=== PATIENT | female | born 1985 ===

== ENCOUNTER 2021-08-19 13:55 | Outpatient (CLI) | payer OTHER ==
[2021-08-19] MEDS ORDERED: SODIUM CHLORIDE IRRIG SOLUTION 1,000 ML BAG IR SCH (16:30)
[2021-08-19] MEDS ORDERED: LIDOCAINE (4%) 40 MG/ML TOPICAL SOLN 50 ML BOTTLE TP SCH (16:30)
== END 2021-08-19 13:56 | disposition home or self-care (01) ==
LOC: WOUND 13:55
PROVIDERS: ATTEND Surgery
DX: T81.89XA Other complications of procedures, not elsewhere classified, initial encounter (principal); Y92.238 Other place in hospital as the place of occurrence of the external cause; Y83.8 Other surgical procedures as the cause of abnormal reaction of the patient, or of later complication, without mention of misadventure at the time of the procedure

== ENCOUNTER 2021-08-26 08:42 | Outpatient (CLI) | payer OTHER ==
[2021-08-26] MEDS ORDERED: LIDOCAINE (4%) 40 MG/ML TOPICAL SOLN 50 ML BOTTLE TP SCH (09:00)
[2021-08-26] MEDS ORDERED: SODIUM CHLORIDE IRRIG SOLUTION 1,000 ML BAG IR SCH (09:30)
== END 2021-08-26 08:43 | disposition home or self-care (01) ==
LOC: WOUND 08:42
PROVIDERS: ATTEND Surgery
DX: T81.89XD Other complications of procedures, not elsewhere classified, subsequent encounter (principal); Y83.8 Other surgical procedures as the cause of abnormal reaction of the patient, or of later complication, without mention of misadventure at the time of the procedure

== ENCOUNTER 2021-09-09 12:28 | Outpatient (CLI) | payer OTHER ==
[2021-09-09] MEDS ORDERED: LIDOCAINE (4%) 40 MG/ML TOPICAL SOLN 50 ML BOTTLE TP ONE (13:07)
[2021-09-09] MEDS ORDERED: SODIUM CHLORIDE IRRIG SOLUTION 1,000 ML BAG IR ONE (14:00)
== END 2021-09-09 12:29 | disposition home or self-care (01) ==
LOC: WOUND 12:28
PROVIDERS: ATTEND Surgery
DX: T81.89XD Other complications of procedures, not elsewhere classified, subsequent encounter (principal); L97.822 Non-pressure chronic ulcer of other part of left lower leg with fat layer exposed; M79.A29 Nontraumatic compartment syndrome of unspecified lower extremity; Z79.899 Other long term (current) drug therapy; Y83.8 Other surgical procedures as the cause of abnormal reaction of the patient, or of later complication, without mention of misadventure at the time of the procedure

== ENCOUNTER 2021-09-16 10:49 | Outpatient (CLI) | payer OTHER ==
[2021-09-16] MEDS ORDERED: LIDOCAINE (4%) 40 MG/ML TOPICAL SOLN 50 ML BOTTLE TP ONE (11:37)
[2021-09-16] MEDS ORDERED: SODIUM CHLORIDE IRRIG SOLUTION 1,000 ML BAG IR ONE (11:38)
== END 2021-09-16 10:50 | disposition home or self-care (01) ==
LOC: WOUND 10:49
PROVIDERS: ATTEND Surgery
DX: T81.89XD Other complications of procedures, not elsewhere classified, subsequent encounter (principal); L97.822 Non-pressure chronic ulcer of other part of left lower leg with fat layer exposed; M79.A22 Nontraumatic compartment syndrome of left lower extremity; Y83.8 Other surgical procedures as the cause of abnormal reaction of the patient, or of later complication, without mention of misadventure at the time of the procedure

== ENCOUNTER 2021-09-30 13:25 | Outpatient (CLI) | payer OTHER ==
[2021-09-30] MEDS ORDERED: LIDOCAINE (4%) 40 MG/ML TOPICAL SOLN 50 ML BOTTLE TP ONE (13:42)
== END 2021-09-30 13:26 | disposition home or self-care (01) ==
LOC: WOUND 13:25
PROVIDERS: ATTEND Surgery
DX: T81.89XD Other complications of procedures, not elsewhere classified, subsequent encounter (principal); L97.822 Non-pressure chronic ulcer of other part of left lower leg with fat layer exposed; M79.A22 Nontraumatic compartment syndrome of left lower extremity; Y83.8 Other surgical procedures as the cause of abnormal reaction of the patient, or of later complication, without mention of misadventure at the time of the procedure

== ENCOUNTER 2021-10-07 13:46 | Outpatient (CLI) | payer OTHER ==
[2021-10-07] MEDS ORDERED: LIDOCAINE (4%) 40 MG/ML TOPICAL SOLN 50 ML BOTTLE TP SCH (14:45)
== END 2021-10-07 13:47 | disposition home or self-care (01) ==
LOC: WOUND 13:46
PROVIDERS: ATTEND Surgery
DX: T81.89XD Other complications of procedures, not elsewhere classified, subsequent encounter (principal); L97.822 Non-pressure chronic ulcer of other part of left lower leg with fat layer exposed; M79.A22 Nontraumatic compartment syndrome of left lower extremity; Y83.8 Other surgical procedures as the cause of abnormal reaction of the patient, or of later complication, without mention of misadventure at the time of the procedure
CPT/HCPCS: 99214; G0463